=== PATIENT | male | born 1960 | race Caucasian/White ===

== ENCOUNTER → 2022-07-02 12:02 | Outpatient (BNVA) | payer OTHER, SELFPAY | PROVIDERS: Family Provider Family Medicine; PCP Family Medicine; Visit Provider Clinical Nurse Specialist Adult Health | DX: J02.9 Acute pharyngitis, unspecified (principal); J32.9 Chronic sinusitis, unspecified; B96.89 Other specified bacterial agents as the cause of diseases classified elsewhere | CPT/HCPCS: 87880 ==

== ENCOUNTER → 2022-11-12 08:56 | Outpatient (BNVA) | payer OTHER, SELFPAY | PROVIDERS: Family Provider Family Medicine; PCP Family Medicine; Visit Provider Family Medicine | DX: Z00.00 Encounter for general adult medical examination without abnormal findings (principal); M05.20 Rheumatoid vasculitis with rheumatoid arthritis of unspecified site; I10 Essential (primary) hypertension; E78.5 Hyperlipidemia, unspecified | CPT/HCPCS: 80053; 80061; 85025; 85651; 86140 ==

== ENCOUNTER → 2023-01-11 10:46 | Outpatient (BNVA) | payer OTHER, SELFPAY | PROVIDERS: Family Provider Family Medicine; PCP Family Medicine; Visit Provider Family Medicine | DX: M05.20 Rheumatoid vasculitis with rheumatoid arthritis of unspecified site (principal) | CPT/HCPCS: 80053; 80061; 85651; 86140 ==

== ENCOUNTER → 2023-06-10 10:05 | Outpatient (BNVA) | payer OTHER, SELFPAY | PROVIDERS: Family Provider Family Medicine; PCP Family Medicine; Visit Provider Family Medicine | DX: M05.20 Rheumatoid vasculitis with rheumatoid arthritis of unspecified site (principal); E78.5 Hyperlipidemia, unspecified | CPT/HCPCS: 80061; 84550; 85651; 86140 ==

== ENCOUNTER → 2023-10-04 14:43 | Outpatient (BNVA) | payer OTHER, SELFPAY | PROVIDERS: Family Provider Family Medicine; PCP Family Medicine; Visit Provider Family Medicine | DX: M05.20 Rheumatoid vasculitis with rheumatoid arthritis of unspecified site (principal); I10 Essential (primary) hypertension | CPT/HCPCS: 80048; 84550; 85025; 85651; 86140 ==

== ENCOUNTER → 2024-08-24 08:26 | Outpatient (BNVA) | payer OTHER, SELFPAY | PROVIDERS: Family Provider Family Medicine; PCP Family Medicine; Visit Provider Family Medicine | DX: I10 Essential (primary) hypertension (principal); E78.5 Hyperlipidemia, unspecified; M05.20 Rheumatoid vasculitis with rheumatoid arthritis of unspecified site | CPT/HCPCS: 80053; 80061; 84550; 86140 ==

== ENCOUNTER 2024-12-19 10:32 | Day surgery (SDC) | payer OTHER, SELFPAY ==
[2024-12-19 10:46] VITALS: BP 124/78; PULSE 76; RESP 18; TEMP 36.4; O2SAT 97; BMI 36.5
[2024-12-19] MEDS: sodium chloride 0.9% 1,000 ML 15 ML IV (10:54)
--- NOTE | 2024-12-19 11:02 | ANES.PREANE2 ---
Pre-Anesthetic Assessment Height/Weight: Height 1.73 m Weight 108.862 kg Temp Pulse Resp BP Pulse Ox O2 Del Method 97.6 F 76 18 124/78 97 Room Air 12/19/24 10:46 12/19/24 10:46 12/19/24 10:46 12/19/24 10:46 12/19/24 10:46 12/19/24 10:46 Preop Diagnosis: screeningnon Operation Date: 12/19/24 12:00 Proposed Procedures p Colonoscopy [id number] G0105, Z12.11(Not Applicable) - Ha Vieira MD Familial anesthetic complications: none Was Beta Carlita taken within 24 hours: N/A Was Clonidine taken within 24 hours: N/A Last intake: Intake Last Liquid Date 12/18/24 Last Liquid Time 23:00 Last Solid Date 12/17/24 Last Solid Time 21:00 Social No alcohol and No tobacco Exam alert, oriented x 3 and clear to auscultation bilaterally Airway Mallampati: Class III History/ROS No significant history except as noted Pulmonary Sleep Apnea (wear CPAP) CV/HEM Hypertension None reported Hepatic None reported GI None reported Metabolic Hyperlipidemia [facility] [place] reported Neuropsych None reported Anesthetic Plan ASA status: 3 Anesthesia: Anesthesia Evaluation and MAC Risk of > 500 ml blood loss (7ml/kg in children): No Medications/Allergies Home Medications ?Medication ?Instructions ?Recorded ?Confirmed ?Last Taken ?Type folic acid 1 mg tablet 1 mg PO DAILY #30 tabs 05/25/24 12/14/24 12/18/24 Rx allopurinol 100 mg tablet 200 mg (2 x 100 mg) PO DAILY #60 09/13/24 12/14/24 12/18/24 Rx tabs methotrexate sodium 2.5 mg tablet 10 mg (4 x 2.5 mg) PO .weekly #20 10/24/24 12/14/24 12/18/24 Rx tabs lisinopril 10 mg tablet 10 mg PO DAILY #90 tabs 11/03/24 12/14/24 12/18/24 Rx aspirin 81 mg tablet 81 mg PO DAILY 12/14/24 12/14/24 12/17/24 History atorvastatin 20 mg tablet 20 mg PO DAILY 12/14/24 12/14/24 12/18/24 History prednisone 10 mg tablet See Rx Instructions PO .COMPLEX 12/14/24 12/14/24 Unknown History PRN flare up Allergies Allergy/AdvReac Type Severity Reaction Status Date / Time No Known Allergies Allergy Verified 12/14/24 08:09 Current Medications Generic Name Dose Route Start Last Admin Trade Name Golden PRN Reason Stop Dose Admin Sodium Chloride 1,000 mls @ 15 mls/hr 12/19/24 10:38 12/19/24 10:54 Sodium Chloride 0.9% IV 12/20/24 10:37 15 mls/hr .Q24H PRN Administration COLONOSCOPY FLUIDS PFSH Anesthesia Medical History ARIANNE (obstructive sleep apnea) using CPAP Rheumatoid arteritis in remission, no longer seeing Dr Chun Hyperlipidemia Essential hypertension Surgical History No pertinent past surgical history Family History Other CAD (coronary artery disease) Cancer Hypertension Social History Smoking and tobacco/nicotine status: never used tobacco/nicotine Quit status (tobacco/nicotine): has quit using Former quit date comment: 2018 30 pack year history Alcohol intake: current Alcohol intake frequency: holidays/special occasions only
--- NOTE | 2024-12-19 11:14 | W.PM.OPSFHP ---
Same Day Surgery H&P Indication for Procedure/HPI DATE OF PROCEDURE: December 19, 2024 CHIEF COMPLAINT/INDICATIONFOR SURGICAL PROCEDURE: screening colonoscopy PREOP DIAGNOSIS: screening colonoscopy PLANNED PROCEDURE: Operation Date: 12/19/24 12:00 Proposed Procedures p Colonoscopy [id number] G0105, Z12.11(Not Applicable) - Ha Vieira MD Medications/Allergies* Home Medications ?Medication ?Instructions ?Recorded ?Confirmed ?Type aspirin 81 mg tablet 81 mg PO DAILY 12/14/24 12/14/24 History atorvastatin 20 mg tablet 20 mg PO DAILY 12/14/24 12/14/24 History prednisone 10 mg tablet See Rx Instructions PO .COMPLEX 12/14/24 12/14/24 History PRN flare up Allergies/Adverse Reactions Allergy/AdvReac Type Severity Reaction Status Date / Time No Known Allergies Allergy Verified 12/14/24 08:09 Current Medications: Generic Name Dose Route Start Last Admin Trade Name Freq PRN Reason Stop Dose Admin Sodium Chloride 1,000 mls @ 15 mls/hr 12/19/24 10:38 12/19/24 10:54 Sodium Chloride 0.9% IV 12/20/24 10:37 15 mls/hr .Q24H PRN Administration COLONOSCOPY FLUIDS Pertinent History/Comorbid Conditions* Medical History (Updated 11/12/22 @ 08:22 by Kedar Sanchez MD) ARIANNE (obstructive sleep apnea) using CPAP Rheumatoid arteritis in remission, no longer seeing Dr Chun Hyperlipidemia Essential hypertension Surgical History (Updated 07/02/22 @ 12:31 by Yunior Greer NP) No pertinent past surgical history Family History (Updated 07/02/22 @ 12:31 by Yunior Greer NP) CAD (coronary artery disease) Cancer Hypertension Social History Smoking and tobacco/nicotine status: never used tobacco/nicotine Quit status (tobacco/nicotine): has quit using Former quit date comment: 2018 30 pack year history Alcohol intake: current Alcohol intake frequency: holidays/special occasions only Pertinent Exam Findings alert, oriented x 3, clear to auscultation bilaterally, regular rate & rhythm and procedure specific exam findings abdomen soft, nt, nd Recommendations Risks and benefits of procedure reviewed and Patient/family agree to proceed Surgery/Procedure today Coding Level of Care Code Acute Code for Chg Fwd
[2024-12-19 11:25] VITALS: BP 99/75; PULSE 74; RESP 16; TEMP 36.1; O2SAT 92
[2024-12-19 11:40] VITALS: BP 99/66; PULSE 70; RESP 16; O2SAT 96
[2024-12-19 11:48] VITALS: BP 100/65; PULSE 73; RESP 16; O2SAT 97
--- NOTE | 2024-12-19 12:15 | ANE.PACU2 ---
Inpatient post-anesthesia follow up: Airway intact: Yes Vital signs: Temperature 97 F Pulse Rate 73 Respiratory Rate 16 Blood Pressure 100/65 Pulse Oximetry 97 Oxygen Delivery Me thod Room Air Oxygen Flow Rate Fraction of Inspir ed Oxygen Hydration adequate: Yes Nausea and vomiting: No Pain level: 1 Mental status: Baseline
== END 2024-12-19 12:15 | disposition home or self-care (01) ==
PROVIDERS: PCP Family Medicine; Visit Provider Student in an Organized Health Care Education/Training Program
PROC: 0DJD8ZZ Inspection of Lower Intestinal Tract, Via Natural or Artificial Opening Endoscopic (ICD-10-PCS; CPT 45378; principal; 2024-12-19 12:00)
DX: Z12.11 Encounter for screening for malignant neoplasm of colon (principal); K64.4 Residual hemorrhoidal skin tags; G47.33 Obstructive sleep apnea (adult) (pediatric); E78.5 Hyperlipidemia, unspecified; I10 Essential (primary) hypertension; Z79.899 Other long term (current) drug therapy; Z87.891 Personal history of nicotine dependence
CPT/HCPCS: 45378; J2704; J7030

== ENCOUNTER → 2024-12-21 09:49 | Outpatient (BNVA) | payer OTHER, SELFPAY | PROVIDERS: PCP Family Medicine; Visit Provider Family Medicine | DX: M05.20 Rheumatoid vasculitis with rheumatoid arthritis of unspecified site (principal) | CPT/HCPCS: 80053; 85025; 86140 ==

== ENCOUNTER → 2025-07-03 10:30 | Outpatient (BNVA) | payer OTHER, SELFPAY | PROVIDERS: PCP Family Medicine; Visit Provider Family Medicine | DX: I10 Essential (primary) hypertension (principal); E78.5 Hyperlipidemia, unspecified; M05.20 Rheumatoid vasculitis with rheumatoid arthritis of unspecified site | CPT/HCPCS: 80053; 80061; 85025; 86140 ==